=== PATIENT | female | born 1955 | race Caucasian/White ===

== ENCOUNTER 2017-06-23 20:56 | Emergency (ER) | payer BC ==
[2017-06-23 23:48] LABS: HEMATOCRIT 37.4 % (36.0-48.0); HEMOGLOBIN 12.7 g/dL (12-16); LYMPHOCYTES 20.6 % (15-50); MCH 29.3 pg (26.0-34.0); MCV 86.2 fL (80.0-100.0); MEAN PLATELET VOLUME 8.3 fL (7.4-10.4); NEUTROPHILS 72.7 % (40-80); RBC 4.34 10x6/uL (4.00-5.40); RDW 12.9 % (11.5-14.5); WBC 5.1 10x3/uL (4.8-10.8)
[2017-06-23 23:49] LABS: PLATELET COUNT 218 10x3/uL (130-400)
[2017-06-24 00:07] LABS: ALBUMIN 3.5 g/dL (3.4-5.0); ALKALINE PHOSPHATASE 71 U/L (46-116); ALT (SGPT) 27 U/L (10-68); CALC OSMOLALITY 274 mosm/kg (275-300); CALCIUM 8.7 mg/dL (8.5-10.1); CARBON DIOXIDE 24.4 mmol/L (21.0-32.0); CHLORIDE - SERUM 103 mmol/L (98-107); CREATININE - SERUM 0.6 mg/dL (0.6-1.3); GLUCOSE 103 mg/dL (74-106); POTASSIUM - SERUM 3.9 mmol/L (3.5-5.1); PROTEIN - SERUM 6.5 g/dL (6.4-8.2); SODIUM 137 mmol/L (136-145); UREA NITROGEN 16 mg/dL (7-18); eGFR NON AFRICAN AMERICAN > 90 mL/min (90-120)
[2017-06-24 00:19] LABS: CKMB 7.6 U/L (0.0-3.6); CREATINE KINASE 306 UL (21-215); TROPONIN-I < 0.017 ng/mL (0.000-0.060)
[2017-06-24 01:05] LABS: APPEARANCE CLOUDY (CLEAR); BILIRUBIN NEGATIVE (NEGATIVE); COLOR YELLOW (YELLOW); GLUCOSE NEGATIVE (NEGATIVE); KETONE MODERATE mg/dL (NEGATIVE); NITRITE POSITIVE (NEGATIVE); PROTEIN NEGATIVE (NEGATIVE); SPECIFIC GRAVITY 1.015 (1.005-1.020); UROBILINOGEN NORMAL (NORMAL)
[2017-06-24 01:06] LABS: BACTERIA MANY /hpf (NONE SEEN); EPITHELIAL CELLS 0-5 /hpf (0-5); RED CELLS - URINE 0-5 /hpf (0-5)
== END 2017-06-24 01:43 | disposition home or self-care (01) ==
LOC: D.ER 20:56
PROVIDERS: Family Medicine
DX: N39.0 Urinary tract infection, site not specified (principal); I95.9 Hypotension, unspecified; K58.9 Irritable bowel syndrome, unspecified; I44.0 Atrioventricular block, first degree

== ENCOUNTER → 2018-04-01 07:56 | Outpatient (CLI) | payer BC ==
[~2018-04-01 07:56] MED LIST: ACETAMINOPHEN500 M1 PO; CYMBALTA30 MG PO; LIMBITROL 5/12.1 TAB PO; LOMOTIL 2.5-0.1 EAC1 PO; NEURONTIN 300300 MG PO; SYNTHROID175 MCG PO; ULTRAM50 MG PO; ZOFRAN4 MG PO
[2018-04-01 08:27] LABS: BASOPHILS 0.3 % (0-2); EOSINOPHILS 4.7 % (0-7); HEMATOCRIT 40.6 % (36.0-48.0); HEMOGLOBIN 13.6 g/dL (12-16); IMMATURE GRANULOCYTES 0.2 % (0-5); LYMPHOCYTES 26.8 % (15-50); MCHC 33.5 g/dL (31.0-37.0); MCV 89.6 fL (80.0-100.0); MEAN PLATELET VOLUME 8.9 fL (7.4-10.4); MONOCYTES 7.6 % (2-11); NEUTROPHILS 60.4 % (40-80); PLATELET COUNT 261 10x3/uL (130-400); RBC 4.53 10x6/uL (4.00-5.40); WBC 6.3 10x3/uL (4.8-10.8)
[2018-04-01 09:02] LABS: ALBUMIN 3.8 g/dL (3.4-5.0); ANION GAP 13.4 mmol/L (8-16); BILIRUBIN - TOTAL 0.59 mg/dL (0.2-1.3); CALCIUM 9.2 mg/dL (8.5-10.1); CARBON DIOXIDE 27.2 mmol/L (21.0-32.0); CREATININE - SERUM 1.7 mg/dL (0.6-1.3); POTASSIUM - SERUM 3.6 mmol/L (3.5-5.1); PROTEIN - SERUM 7.3 g/dL (6.4-8.2); T4 THYROXIN - FREE 1.74 ng/dL (0.76-1.46); THYROID STIMULATING HORMONE 0.69 uIU/mL (0.36-3.74)
[2018-04-01 10:19] LABS: ERYTHROCYTE SEDIMENTATION RATE 10 mm/hr (0-30)
[2018-04-02 10:19] LABS: ANA REFLEX - DIRECT Negative (Negative); ANA REFLEX - SJOGRENS AB SSA <0.2 AI (0.0-0.9); ANA REFLEX - SJOGRENS AB SSB <0.2 AI (0.0-0.9); FOLATE (FOLIC ACID) - SERUM 11.2 ng/mL (>3.0)
[2018-04-03 15:26] LABS: SMOOTH MUSCLE ABS (ACTIN) 9 Units (0-19); SPE - A/G RATIO 1.1 (0.7-1.7); SPE - ALBUMIN 3.6 g/dL (2.9-4.4); SPE - ALPHA-1 GLOBULIN 0.3 g/dL (0.0-0.4); SPE - ALPHA-2 GLOBULIN 0.8 g/dL (0.4-1.0); SPE - M-SPIKE Not Observed g/dL (Not Observed); SPE - TOTAL PROTEIN 6.8 g/dL (6.0-8.5)
[2018-04-03 16:13] LABS: ANCA - ANTIMYELOPEROXIDASE <9.0 U/mL (0.0-9.0); ANCA - ANTIPROTEINASE 3 <3.5 U/mL (0.0-3.5); ANCA - ATYPICAL <1:20 titer (Neg:<1:20); ANCA - CYTOPLASMIC <1:20 titer (Neg:<1:20); ANCA - PERINUCLEAR <1:20 titer (Neg:<1:20)
[2018-04-08 14:23] LABS: SINGLE-STRANDED DNA ABS <20 EU (0-19)
[2018-04-10 15:24] LABS: ANTI-HU ANTIBODIES <1:10 titer (()); ANTI-YO ANTIBODIES <1:10 titer (()); GM1 IGM <1:100 titer (())
[2018-04-21 10:38] VITALS: BMI 30.8
== END | disposition home or self-care (01) ==
LOC: D.LAB 07:56
PROVIDERS: Psychiatry & Neurology Neurology
DX: G62.9 Polyneuropathy, unspecified (principal)

== ENCOUNTER 2018-04-15 16:09 | Inpatient (IN) | payer BC ==
[~2018-04-15] VITALS: Ht 165.1 cm; Wt 81.8 kg
--- NOTE | ~2018-04-15 | MORECARE ---
CASE MANAGEMENT DISCHARGE SUMMARY PATIENT: GEOVANNA ROBERTS UNIT: [id number] ADM DATE: 04/15/18 AGE: 62 : 59 SEX: F ROOM/BED: D.2232 AUTHOR: MAR,DOC PHYSICIAN: REFERRING PHYSICIAN: ROYAL LR MD DATE OF SERVICE: 04/17/18 Discharge Plan Patient Name: GEOVANNA ROBERTS Facility: [facility]:[place] : 1955 Planned Disposition: Inpatient Rehab Anticipated Discharge Date: Discharge Date: Expected LOS: Initial Reviewer: [email or web address] Initial Review Date: 04/17/2018 Generated: 04/17/18 6:19 pm Comments DCP- Discharge Planning Updated by [email or web address]: Sarah Mcdonald on 04/17/18 4:[address] Patient Name: GEOVANNA ROBERTS Admission Status: ER Accout number: [id number] Admission Date: 04-15-2018 : 1955 Admission Diagnosis:DISPLACED BIMALLEOLAR FRACTURE OF RIGHT LOWER LEG, INIT Attending: ROYAL LR Current LOS: 2 Anticipated DC Date: Planned Disposition: Inpatient Rehab Primary Insurance: [employer] [facility] Discharge Planning Comments: CM met with patient to discuss discharge planning, she is alone in the room. States she lives alone. States she is independent with all ADL's and IADL's. States she does not have any outside services assisting in the home. States she may have a BSC, will have to have her family check. Informed of availability of rehab, SNF, DME. States she would like to go to inpatient rehab before going home. States she will probably need a rollator walker prior to discharge home "something I can use my arm strength on to stand". CM will continue to follow and assist with discharge planning/needs. Operator Control Room: Sarah Mcdonald DCPIA - Discharge Planning Initial Assessment Updated by [email or web address]: Sarah Mcdonald on 04/17/18 5:11 pm * Is the patient Alert and Oriented? Yes * How many steps to enter\\exit or inside your home? Ramp/0 * PCP Dr. Lr * Pharmacy [facility] * Preadmission Environment Home Alone * ADLs Independent * Equipment Grab Bars Other * Other Equipment Grab stick * List name and contact numbers for known caregivers / representatives who currently or will assist patient after discharge: Samara montiel daughter - [phone] * Verbal permission to speak to the caregivers and representatives has been obtained from the patient. Yes * Community resources currently utilized None * Additional services required to return to the preadmission environment? Yes * Can the patient safely return to the preadmission environment? No * Has this patient been hospitalized within the prior 30 days at any hospital? No Patient Name: GEOVANNA ROBERTS Page [id number] at 1719 All edits/amendments must be made on the electronic document DICTATION DATE: 04/17/181718 BLASTING GANG MINER: JULI 04/17/181718 RPT#: [id number] DC DATE: STATUS: ADM IN [facility] [address] [place] [address] END OF REPORT
--- NOTE | ~2018-04-15 | MORECARE ---
CASE MANAGEMENT DISCHARGE SUMMARY PATIENT: GEOVANNA ROBERTS UNIT: [id number] ADM DATE: 04/15/18 AGE: 62 : 59 SEX: F ROOM/BED: D.2232 AUTHOR: MAR,DOC PHYSICIAN: REFERRING PHYSICIAN: ROYAL LR MD DATE OF SERVICE: 04/20/18 Discharge Plan Patient Name: GEOVANNA ROBERTS Facility: [facility]:[place] : 1955 Planned Disposition: Inpatient Rehab Anticipated Discharge Date: Discharge Date: Expected LOS: Initial Reviewer: [email or web address] Initial Review Date: 04/17/2018 Generated: 04/20/18 3:43 pm Comments DCP- Discharge Planning Updated by [email or web address]: Sarah Mcdonald on 04/20/18 1:[address] Received a call from Roxanne that she expects to receive authorization in a few minutes from insurance. I called Deb Cruz and she gives administration approval for rehab inpatient admission. I informed the patient and she agrees to plan. Anticipate discharge to inpatient rehab today. CM will continue to follow and assist with discharge planning/needs. DCP- Discharge Planning Updated by [email or web address]: Sarah Mcdonald on 04/17/18 5:[address] Patient Name: GEOVANNA ROBERTS Admission Status: ER Accout number: [id number] Admission Date: 04-15-2018 : 1955 Admission Diagnosis:DISPLACED BIMALLEOLAR FRACTURE OF RIGHT LOWER LEG, INIT Attending: ROYAL LR Current LOS: 2 Anticipated DC Date: Planned Disposition: Inpatient Rehab Primary Insurance: [employer] [facility] Discharge Planning Comments: CM met with patient to discuss discharge planning, she is alone in the room. States she lives alone. States she is independent with all ADL's and IADL's. States she does not have any outside services assisting in the home. States she may have a BSC, will have to have her family check. Informed of availability of rehab, SNF, DME. States she would like to go to inpatient rehab before going home. States she will probably need a rollator walker prior to discharge home "something I can use my arm strength on to stand". CM will continue to follow and assist with discharge planning/needs. [employer] Operator: Sarah Mcdonald DCPIA - Discharge Planning Initial Assessment Updated by [email or web address]: Sarah Mcdonald on 04/17/18 5:11 pm * Is the patient Alert and Oriented? Yes * How many steps to enter\\exit or inside your home? Ramp/0 * PCP Dr. Lr * [facility]acy [facility] * Preadmission Environment Home Alone * ADLs Independent * Equipment Grab Bars Other * Other Equipment Grab stick * List name and contact numbers for known caregivers / representatives who currently or will assist patient after discharge: Samara montiel daughter - [phone] * Verbal permission to speak to the caregivers and representatives has been obtained from the patient. Yes * Community resources currently utilized None * Additional services required to return to the preadmission environment? Yes * Can the patient safely return to the preadmission environment? No * Has this patient been hospitalized within the prior 30 days at any hospital? No Last DP export: 04/17/18 5:19 p Patient Name: GEOVANNA ROBERTS Page 00034 at 1443 All edits/amendments must be made on the electronic document DICTATION DATE: 04/20/181442 CENA: JULI 04/20/183 RPT#: [id number] [place] DATE: STATUS: ADM IN [facility] [address] [place] [address] END OF REPORT
--- NOTE | ~2018-04-15 | MORECARE ---
CASE MANAGEMENT DISCHARGE SUMMARY PATIENT: GEOVANNA ROBERTS UNIT: [id number] ADM DATE: 04/15/18 AGE: 62 : 59 SEX: F ROOM/BED: D.2232 AUTHOR: MAR,DOC PHYSICIAN: REFERRING PHYSICIAN: ROYAL LR MD DATE OF SERVICE: 04/21/18 Discharge Plan Patient Name: GEOVANNA ROBERTS Facility: [facility]:[place] : 1955 Planned Disposition: Inpatient Rehab Anticipated Discharge Date: Discharge Date: 04/20/2018 Expected LOS: 0 Initial Reviewer: [email or web address] Initial Review Date: 04/17/2018 Generated: 04/21/18 10:10 am Comments DCP- Discharge Planning Updated by [email or web address]: Sarah Mcdonald on 04/20/18 1:[address] Received a call from Roxanne that she expects to receive authorization in a few minutes from insurance. I called Deb Cruz and she gives administration approval for rehab inpatient admission. I informed the patient and she agrees to plan. Anticipate discharge to inpatient rehab today. CM will continue to follow and assist with discharge planning/needs. DCP- Discharge Planning Updated by [email or web address]: Sarah Mcdonald on 04/17/18 5:[address] Patient Name: GEOVANNA ROBERTS Admission Status: ER Accout number: [id number] Admission Date: 04-15-2018 : 1955 Admission Diagnosis:DISPLACED BIMALLEOLAR FRACTURE OF RIGHT LOWER LEG, INIT Attending: ROYAL LR Current LOS: 2 Anticipated DC Date: Planned Disposition: Inpatient Rehab Primary Insurance: [employer] [facility] Discharge Planning Comments: CM met with patient to discuss discharge planning, she is alone in the room. States she lives alone. States she is independent with all ADL's and IADL's. States she does not have any outside services assisting in the home. States she may have a BSC, will have to have her family check. Informed of availability of rehab, SNF, DME. States she would like to go to inpatient rehab before going home. States she will probably need a rollator walker prior to discharge home "something I can use my arm strength on to stand". CM will continue to follow and assist with discharge planning/needs. Project Development Director: Sarah Mcdonald DCPIA - Discharge Planning Initial Assessment Updated by [email or web address]: Sarah Mcdonald on 04/17/18 5:11 pm * Is the patient Alert and Oriented? Yes * How many steps to enter\\exit or inside your home? Ramp/0 * PCP Dr. Lr * Pharmacy [facility] * Preadmission Environment Home Alone * ADLs Independent * Equipment Grab Bars Other * Other Equipment Grab stick * List name and contact numbers for known caregivers / representatives who currently or will assist patient after discharge: Samara montiel daughter - [phone] * Verbal permission to speak to the caregivers and representatives has been obtained from the patient. Yes * Community resources currently utilized None * Additional services required to return to the preadmission environment? Yes * Can the patient safely return to the preadmission environment? No * Has this patient been hospitalized within the prior 30 days at any hospital? No Last DP export: 04/20/18 1:43 p Patient Name: GEOVANNA ROBERTS Page 85605 at 0910 All edits/amendments must be made on the electronic document DICTATION DATE: 04/21/18908 FACULTY NEUROPSYCHOLOGIST: JULI 04/21/18908 RPT#: [id number] DC DATE:04/20/18 STATUS: DIS IN [facility] [address] [place] [address] END OF REPORT
[2018-04-15] MEDS ORDERED: SYNTHROID175 MCG PO (16:16)
[2018-04-15] MEDS ORDERED: CYMBALTA30 MG PO (16:16)
[2018-04-15] MEDS ORDERED: NEURONTIN 300300 MG PO (16:16)
[2018-04-15] MEDS ORDERED: LOMOTIL 2.5-0.1 EAC1 PO ×2 (16:17→23:43)
[2018-04-15] MEDS ORDERED: ACETAMINOPHEN500 M1 PO (16:17)
[2018-04-15] MEDS ORDERED: ZOFRAN4 MG PO (16:18)
[2018-04-15 17:47] LABS: BASOPHILS 0.5 % (0-2); EOSINOPHILS 7.1 % (0-7); HEMATOCRIT 37.1 % (36.0-48.0); HEMOGLOBIN 12.5 g/dL (12-16); LYMPHOCYTES 22.4 % (15-50); MCH 29.4 pg (26.0-34.0); MCHC 33.7 g/dL (31.0-37.0); MCV 87.3 fL (80.0-100.0); MEAN PLATELET VOLUME 8.8 fL (7.4-10.4); MONOCYTES 6.1 % (2-11); NEUTROPHILS 63.9 % (40-80); PLATELET COUNT 220 10x3/uL (130-400); RBC 4.25 10x6/uL (4.00-5.40); RDW 12.7 % (11.5-14.5); WBC 6.1 10x3/uL (4.8-10.8)
[2018-04-15 18:02] LABS: ALBUMIN 3.3 g/dL (3.4-5.0); ALKALINE PHOSPHATASE 123 U/L (46-116); ALT (SGPT) 116 U/L (10-68); BILIRUBIN - TOTAL 0.69 mg/dL (0.2-1.3); CALC OSMOLALITY 282 mosm/kg (275-300); CALCIUM 9.2 mg/dL (8.5-10.1); CARBON DIOXIDE 31.6 mmol/L (21.0-32.0); CHLORIDE - SERUM 105 mmol/L (98-107); CREATININE - SERUM 0.8 mg/dL (0.6-1.3); GLUCOSE 108 mg/dL (74-106); POTASSIUM - SERUM 3.8 mmol/L (3.5-5.1); PROTEIN - SERUM 6.5 g/dL (6.4-8.2); SODIUM 141 mmol/L (136-145); UREA NITROGEN 14 mg/dL (7-18); eGFR NON AFRICAN AMERICAN 77 mL/min (90-120)
[2018-04-15 18:30] VITALS: BP 126/72
[2018-04-15 19:16] LABS: APPEARANCE CLOUDY (CLEAR); BILIRUBIN NEGATIVE (NEGATIVE); COLOR YELLOW (YELLOW); GLUCOSE NEGATIVE (NEGATIVE); KETONE NEGATIVE (NEGATIVE); NITRITE POSITIVE (NEGATIVE); PROTEIN NEGATIVE (NEGATIVE); SPECIFIC GRAVITY 1.015 (1.005-1.020); UROBILINOGEN NORMAL (NORMAL)
[2018-04-15 19:20] LABS: BACTERIA MANY /hpf (NONE SEEN); RED CELLS - URINE OCC /hpf (0-5); WHITE CELLS - URINE >50 /hpf (0-5)
[2018-04-15 19:59] VITALS: BP 156/79
[2018-04-15 20:32] VITALS: BP 130/80
[2018-04-15] MEDS ORDERED: LIMBITROL 5/12.1 TAB PO (23:40)
[2018-04-16] VITALS (12 sets, daily range): BP systolic 101–127; BP diastolic 56–73; Ht 165.1 cm; Wt 81.8 kg
[2018-04-16 11:09] LABS: BASOPHILS 0.2 % (0-2); EOSINOPHILS 1.4 % (0-7); HEMATOCRIT 32.9 % (36.0-48.0); IMMATURE GRANULOCYTES 0.2 % (0-5); LYMPHOCYTES 6.6 % (15-50); MCH 29.3 pg (26.0-34.0); MCHC 33.4 g/dL (31.0-37.0); MCV 87.5 fL (80.0-100.0); MEAN PLATELET VOLUME 8.8 fL (7.4-10.4); MONOCYTES 3.5 % (2-11); NEUTROPHILS 88.1 % (40-80); PLATELET COUNT 191 10x3/uL (130-400); RBC 3.76 10x6/uL (4.00-5.40); RDW 12.7 % (11.5-14.5); WBC 6.4 10x3/uL (4.8-10.8)
[2018-04-16 11:10] LABS: ANION GAP 9.6 mmol/L (8-16); CALCIUM 8.5 mg/dL (8.5-10.1); CARBON DIOXIDE 29.3 mmol/L (21.0-32.0); CREATININE - SERUM 0.9 mg/dL (0.6-1.3); POTASSIUM - SERUM 3.9 mmol/L (3.5-5.1)
[2018-04-17 05:12] VITALS: BP 104/66
[2018-04-17 06:19] LABS: BASOPHILS 0.1 % (0-2); EOSINOPHILS 0.3 % (0-7); HEMATOCRIT 31.1 % (36.0-48.0); HEMOGLOBIN 10.5 g/dL (12-16); IMMATURE GRANULOCYTES 0.3 % (0-5); LYMPHOCYTES 13.6 % (15-50); MCH 29.6 pg (26.0-34.0); MCHC 33.8 g/dL (31.0-37.0); MCV 87.6 fL (80.0-100.0); MEAN PLATELET VOLUME 9.2 fL (7.4-10.4); NEUTROPHILS 74.7 % (40-80); PLATELET COUNT 218 10x3/uL (130-400); RBC 3.55 10x6/uL (4.00-5.40); RDW 12.7 % (11.5-14.5); WBC 9.3 10x3/uL (4.8-10.8)
[2018-04-17 06:35] LABS: ALBUMIN 2.6 g/dL (3.4-5.0); ANION GAP 11.1 mmol/L (8-16); BILIRUBIN - TOTAL 0.39 mg/dL (0.2-1.3); CALCIUM 8.4 mg/dL (8.5-10.1); CARBON DIOXIDE 27.4 mmol/L (21.0-32.0); CREATININE - SERUM 0.9 mg/dL (0.6-1.3); POTASSIUM - SERUM 3.5 mmol/L (3.5-5.1); PROTEIN - SERUM 5.8 g/dL (6.4-8.2)
[2018-04-17 08:29] VITALS: BP 120/80
[2018-04-17 21:26] VITALS: BP 100/61
[2018-04-18 09:35] VITALS: BP 121/72
[2018-04-18 16:30] VITALS: BP 117/70
[2018-04-18 20:39] VITALS: BP 101/68
[2018-04-19 00:20] VITALS: BP 104/63
[2018-04-19 05:02] VITALS: BP 112/68
[2018-04-19 09:04] VITALS: BP 116/66
[2018-04-19 11:52] VITALS: BP 116/64
[2018-04-19 15:32] VITALS: BP 111/65
[2018-04-19 20:50] VITALS: BP 114/64
[2018-04-20 01:20] VITALS: BP 124/64
[2018-04-20 08:37] VITALS: BP 110/71
[2018-04-20 13:07] VITALS: BP 120/68
[2018-04-20] MEDS ORDERED: ULTRAM50 MG PO ×2 (14:24→14:35)
[2018-04-20 16:55] VITALS: BP 135/68
== END 2018-04-20 18:36 | DRG 494 ==
LOC: D.ER 16:09 → D.EDHOLD 17:52 → D.MS 17:52
PROVIDERS: Family Medicine; Orthopaedic Surgery
PROC: 0QSG04Z Reposition Right Tibia with Internal Fixation Device, Open Approach (ICD-10-PCS; 2018-04-16)
PROC: 0QSJ04Z Reposition Right Fibula with Internal Fixation Device, Open Approach (ICD-10-PCS; principal; 2018-04-16 07:30)
DX: S82.841A Displaced bimalleolar fracture of right lower leg, initial encounter for closed fracture (principal); W01.0XXA Fall on same level from slipping, tripping and stumbling without subsequent striking against object, initial encounter; G62.9 Polyneuropathy, unspecified; R32 Unspecified urinary incontinence; K58.9 Irritable bowel syndrome, unspecified; E03.9 Hypothyroidism, unspecified; M21.372 Foot drop, left foot; M21.371 Foot drop, right foot

== ENCOUNTER 2018-04-20 18:14 | Inpatient (IN) | payer BC ==
[~2018-04-20] VITALS: Ht 165.1 cm; Wt 84.0 kg
--- NOTE | ~2018-04-20 | RHP ---
PATIENT: GEOVANNA ROBERTS MEDICAL RECORD: [id number] ACCOUNT: [id number] LOCATION:[facility] : [birth year] ADMISSION DATE: 04/20/18 REHABILITATION HISTORY AND PHYSICAL EXAMINATION POST ADMISSION PHYSICIAN EXAMINATION DATE OF ADMISSION: 04/20/2018 ADMITTING DIAGNOSIS: Comminuted displaced fracture of the medial malleolus, distal with some medial displacement fracture fragments. HISTORY OF PRESENT ILLNESS: The patient is a 62-year-old female patient admitted to rehab with a comminuted distal fracture of the medial and lateral malleolus with intra-articular involvement after a fall at home, and history of neuropathy, apparently, she also has bilateral foot drop. She has got a history of coronary artery disease, hypothyroidism, irritable bowel syndrome, and chronic UTIs. Apparently, she was twisting her ankle just prior to arrival to the Emergency Room, but then was unable to walk or bear weight on her right leg. On arrival to the Emergency Room, she had marked swelling to the proximal part of her ankle, associated ecchymosis was noted, with some tenderness along her anterior proximal aspect of her ankle. X-ray showed a comminuted displaced fracture of the medial malleolus, distal tibia with some medial displacement of the distal fracture fragment. The patient was reduced and splinted in the Emergency Room under TIVA and was admitted with ortho consultation. On 04/16/2018, she went to the OR for a right bimalleolar ankle fracture. Previously, she was independent without aid for ADLs and mobility. 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 She has been nonweightbearing on her right leg. She has some postop fever with a temperature of 100.2 and also some tachycardia. A venous Doppler of her leg has been negative thus far for DVT. She wants to be able to pivot transfer on the left leg and be able to transfer to and from bed while being nonweightbearing and will need inpatient rehab to get this done. COMORBIDITIES: Include bilateral foot drop, neuropathy, postop fever, anemia, status post ORIF of the right bimalleolar ankle fracture, hypothyroidism, malaise, fatigue, numbness, vertigo, pedal edema, arthritis, glaucoma, cataracts, and hyperglycemia. PAST MEDICAL HISTORY: Significant for neuropathy, vertigo, cataracts, hypothyroidism, coronary artery disease, and edema. PAST SURGICAL HISTORY: Includes stent placed and an ORIF of her right ankle. ALLERGIES: CODEINE, HYDROCODONE, AND CHLORZOXAZONE. CURRENT MEDICATIONS: Include Neurontin, she takes t.i.d.; Cymbalta 30 mg daily; Lomotil 2 tabs daily; Synthroid 175 mcg daily; tramadol 100 mg q.6 hours p.r.n.; Zofran ODT 4 mg q.6 hours p.r.n.; and Tylenol 1000 mg q.6 hours p.r.n. HABITS: No alcohol or tobacco use. FAMILY HISTORY: Noncontributory. SOCIAL HISTORY: The patient hopes to return back home and get back to her prior level of functioning. HISTORY AND PHYSICAL [id number] GEOVANNA ROBERTS REVIEW OF SYSTEMS: GENERAL: Denies weakness or fatigue. HEENT: Denies cold, cough, or congestion. CARDIOVASCULAR: Denies chest pain. PHYSICAL EXAMINATION: VITAL SIGNS: Stable, afebrile. GENERAL: A well-developed female, in no acute distress, alert upon exam. HEENT: Normocephalic and atraumatic. Mucosa moist. NECK: Supple. No lymphadenopathy. LUNGS: Clear at this time. HEART: Regular rate and rhythm. ABDOMEN: Benign. EXTREMITIES: No clubbing, cyanosis, or edema. She does have surgical dressings and a brace in place. NEUROLOGIC: She is intact. LABORATORY DATA: Her white count is 5.3, H&H of 11 and 33, and platelet count was noted to be 256. Her sodium is 140, potassium 4.0, BUN and creatinine of 12 and 0.7, blood sugar is noted to be 96. ASSESSMENT: This 62-year-old female patient admitted to the rehab with a working diagnosis of status post ORIF of her right bimalleolar ankle fracture. The patient has potential to make improvement. We instituted the following multidisciplinary therapies including, but not limited to physical, occupational, respiratory, speech, nutritional services, prosthetics and orthotics. Given her complex medical condition and risk for more complications, rehabilitation services cannot be provided at a low level of care such as skilled nurse facility. PLAN: 1. Admit to [facility] for intensive inpatient therapy to include the following disciplines: A. Physical therapy to improve gait, all transfer skills and bed mobility to a modified independent level. B. Occupational therapy to improve activities of daily living to a modified independent level. C. Case management to assist with discharge planning and placement options. D. Nutrition to assist with nutritional needs. E. Rehabilitation nursing to assist in monitoring the patient's underlying medical conditions and to assist with any type of bowel or bladder management. 2. The patient's current medication and medical care will be continued. 3. The patient will be placed on standard fall precautions. 4. We will continue home medications as previously prescribed. 5. We will follow up in the a.m. with her and also with care team and field nurse case manager tomorrow. TRANSINT:[id number] Voice Confirmation ID: [id number] DOCUMENT ID: [id number] ROB notes whether there has been none or any medical/functional change since admission: - No change since preadmission screen. HISTORY AND PHYSICAL [id number] GEOVANNA ROBERTS attests patient continues to be appropriate for IRF: - Continues to be appropriate. SASHA ALFARO MD at 1404 CC: [id number] DICTATION DATE: 04/21/18 0851 FINANCIAL INVESTMENT ADVISER: 04/21/18 1010 ADM IN [facility] [address] [place] [address]
[2018-04-20 21:19] VITALS: BP 127/60
[2018-04-21 07:56] LABS: BASOPHILS 0.6 % (0-2); EOSINOPHILS 9.7 % (0-7); HEMATOCRIT 32.5 % (36.0-48.0); HEMOGLOBIN 10.9 g/dL (12-16); IMMATURE GRANULOCYTES 1.1 % (0-5); MCH 29.4 pg (26.0-34.0); MCHC 33.5 g/dL (31.0-37.0); MCV 87.6 fL (80.0-100.0); MEAN PLATELET VOLUME 9.6 fL (7.4-10.4); MONOCYTES 7.2 % (2-11); NEUTROPHILS 50.4 % (40-80); PLATELET COUNT 256 10x3/uL (130-400); RBC 3.71 10x6/uL (4.00-5.40); RDW 12.7 % (11.5-14.5); WBC 5.3 10x3/uL (4.8-10.8)
[2018-04-21 07:57] LABS: CALC OSMOLALITY 278 mosm/kg (275-300); CALCIUM 8.7 mg/dL (8.5-10.1); CARBON DIOXIDE 27.5 mmol/L (21.0-32.0); CHLORIDE - SERUM 106 mmol/L (98-107); CREATININE - SERUM 0.7 mg/dL (0.6-1.3); GLUCOSE 96 mg/dL (74-106); SODIUM 140 mmol/L (136-145); UREA NITROGEN 12 mg/dL (7-18); eGFR NON AFRICAN AMERICAN 90 mL/min (90-120)
[2018-04-21 08:26] VITALS: BP 130/64
[2018-04-21 10:38] VITALS: Ht 165.1 cm; Wt 84.0 kg
[2018-04-21 19:00] VITALS: BP 114/68
[2018-04-22 08:00] VITALS: BP 108/60
[2018-04-22 12:11] LABS: BASOPHILS 0.4 % (0-2); EOSINOPHILS 8.2 % (0-7); HEMOGLOBIN 10.2 g/dL (12-16); IMMATURE GRANULOCYTES 0.2 % (0-5); LYMPHOCYTES 31.4 % (15-50); MCH 29.6 pg (26.0-34.0); MCHC 32.9 g/dL (31.0-37.0); MEAN PLATELET VOLUME 8.7 fL (7.4-10.4); NEUTROPHILS 51.8 % (40-80); PLATELET COUNT 261 10x3/uL (130-400); RBC 3.45 10x6/uL (4.00-5.40); RDW 12.7 % (11.5-14.5); WBC 5.5 10x3/uL (4.8-10.8)
[2018-04-22 12:12] LABS: MCV 89.9 fL (80.0-100.0)
[2018-04-22 12:28] LABS: CALCIUM 8.6 mg/dL (8.5-10.1); CARBON DIOXIDE 27.5 mmol/L (21.0-32.0); CHLORIDE - SERUM 106 mmol/L (98-107); CREATININE - SERUM 0.7 mg/dL (0.6-1.3); GLUCOSE 94 mg/dL (74-106); SODIUM 140 mmol/L (136-145); eGFR NON AFRICAN AMERICAN 90 mL/min (90-120)
[2018-04-22 12:32] LABS: CALC OSMOLALITY 279 mosm/kg (275-300); POTASSIUM - SERUM 4.8 mmol/L (3.5-5.1); UREA NITROGEN 16 mg/dL (7-18)
[2018-04-22 19:00] VITALS: BP 90/60
[2018-04-23 08:00] VITALS: BP 98/54
[2018-04-23 20:40] VITALS: BP 115/65
[2018-04-24 05:48] LABS: BASOPHILS 0.2 % (0-2); EOSINOPHILS 10.8 % (0-7); HEMATOCRIT 29.8 % (36.0-48.0); HEMOGLOBIN 9.7 g/dL (12-16); IMMATURE GRANULOCYTES 0.4 % (0-5); LYMPHOCYTES 30.3 % (15-50); MCHC 32.6 g/dL (31.0-37.0); MCV 89.2 fL (80.0-100.0); MEAN PLATELET VOLUME 8.7 fL (7.4-10.4); MONOCYTES 6.9 % (2-11); NEUTROPHILS 51.4 % (40-80); PLATELET COUNT 267 10x3/uL (130-400); RBC 3.34 10x6/uL (4.00-5.40); RDW 12.7 % (11.5-14.5); WBC 5.2 10x3/uL (4.8-10.8)
[2018-04-24 06:14] LABS: CALC OSMOLALITY 279 mosm/kg (275-300); CALCIUM 8.5 mg/dL (8.5-10.1); CARBON DIOXIDE 29.1 mmol/L (21.0-32.0); CHLORIDE - SERUM 105 mmol/L (98-107); CREATININE - SERUM 0.8 mg/dL (0.6-1.3); GLUCOSE 103 mg/dL (74-106); POTASSIUM - SERUM 4.3 mmol/L (3.5-5.1); SODIUM 140 mmol/L (136-145); UREA NITROGEN 14 mg/dL (7-18); eGFR NON AFRICAN AMERICAN 77 mL/min (90-120)
[2018-04-24 08:02] VITALS: BP 119/55
[2018-04-24 19:02] VITALS: BP 131/72
[2018-04-25 07:58] VITALS: BP 98/58
[2018-04-25 20:50] VITALS: BP 96/59
[2018-04-26 08:57] VITALS: BP 98/53
[2018-04-26 20:00] VITALS: BP 113/60
[2018-04-27 06:33] LABS: BASOPHILS 0.2 % (0-2); EOSINOPHILS 8.3 % (0-7); HEMATOCRIT 28.5 % (36.0-48.0); HEMOGLOBIN 9.3 g/dL (12-16); IMMATURE GRANULOCYTES 0.2 % (0-5); LYMPHOCYTES 30.9 % (15-50); MCH 29.2 pg (26.0-34.0); MCHC 32.6 g/dL (31.0-37.0); MCV 89.3 fL (80.0-100.0); MEAN PLATELET VOLUME 8.7 fL (7.4-10.4); MONOCYTES 7.6 % (2-11); NEUTROPHILS 52.8 % (40-80); PLATELET COUNT 290 10x3/uL (130-400); RBC 3.19 10x6/uL (4.00-5.40); RDW 12.8 % (11.5-14.5); WBC 5.7 10x3/uL (4.8-10.8)
[2018-04-27 06:49] LABS: CALC OSMOLALITY 281 mosm/kg (275-300); CALCIUM 8.3 mg/dL (8.5-10.1); CARBON DIOXIDE 27.7 mmol/L (21.0-32.0); CHLORIDE - SERUM 106 mmol/L (98-107); CREATININE - SERUM 0.7 mg/dL (0.6-1.3); GLUCOSE 96 mg/dL (74-106); POTASSIUM - SERUM 3.9 mmol/L (3.5-5.1); SODIUM 141 mmol/L (136-145); UREA NITROGEN 15 mg/dL (7-18); eGFR NON AFRICAN AMERICAN 90 mL/min (90-120)
[2018-04-27 08:00] VITALS: BP 111/65
[2018-04-27 21:57] VITALS: BP 126/68
[2018-04-28 08:14] VITALS: BP 115/64
[2018-04-28 19:00] VITALS: BP 116/67
[2018-04-29 06:17] LABS: BASOPHILS 0.4 % (0-2); EOSINOPHILS 7.3 % (0-7); HEMATOCRIT 28.3 % (36.0-48.0); HEMOGLOBIN 9.4 g/dL (12-16); IMMATURE GRANULOCYTES 0.2 % (0-5); LYMPHOCYTES 29.8 % (15-50); MCH 29.7 pg (26.0-34.0); MCHC 33.2 g/dL (31.0-37.0); MCV 89.6 fL (80.0-100.0); MEAN PLATELET VOLUME 8.7 fL (7.4-10.4); MONOCYTES 9.8 % (2-11); NEUTROPHILS 52.5 % (40-80); PLATELET COUNT 318 10x3/uL (130-400); RBC 3.16 10x6/uL (4.00-5.40); RDW 12.8 % (11.5-14.5); WBC 5.6 10x3/uL (4.8-10.8)
[2018-04-29 06:35] LABS: CALC OSMOLALITY 278 mosm/kg (275-300); CALCIUM 8.8 mg/dL (8.5-10.1); CARBON DIOXIDE 29.8 mmol/L (21.0-32.0); CHLORIDE - SERUM 105 mmol/L (98-107); CREATININE - SERUM 0.7 mg/dL (0.6-1.3); GLUCOSE 104 mg/dL (74-106); POTASSIUM - SERUM 4.1 mmol/L (3.5-5.1); SODIUM 139 mmol/L (136-145); UREA NITROGEN 15 mg/dL (7-18); eGFR NON AFRICAN AMERICAN 90 mL/min (90-120)
[2018-04-29 08:15] VITALS: BP 108/60
[2018-04-29 19:00] VITALS: BP 108/58
[2018-04-30 08:06] VITALS: BP 113/63
[2018-04-30 19:09] VITALS: BP 119/71
[2018-05-01 07:28] LABS: BASOPHILS 0.5 % (0-2); EOSINOPHILS 10.4 % (0-7); HEMATOCRIT 29.8 % (36.0-48.0); HEMOGLOBIN 9.8 g/dL (12-16); IMMATURE GRANULOCYTES 0.2 % (0-5); LYMPHOCYTES 23.3 % (15-50); MCH 29.5 pg (26.0-34.0); MCHC 32.9 g/dL (31.0-37.0); MCV 89.8 fL (80.0-100.0); MEAN PLATELET VOLUME 8.4 fL (7.4-10.4); NEUTROPHILS 55.6 % (40-80); PLATELET COUNT 317 10x3/uL (130-400); RBC 3.32 10x6/uL (4.00-5.40); RDW 12.8 % (11.5-14.5); WBC 5.5 10x3/uL (4.8-10.8)
[2018-05-01 07:36] LABS: CALC OSMOLALITY 276 mosm/kg (275-300); CALCIUM 8.6 mg/dL (8.5-10.1); CARBON DIOXIDE 30.8 mmol/L (21.0-32.0); CHLORIDE - SERUM 104 mmol/L (98-107); CREATININE - SERUM 0.6 mg/dL (0.6-1.3); GLUCOSE 101 mg/dL (74-106); POTASSIUM - SERUM 4.7 mmol/L (3.5-5.1); SODIUM 138 mmol/L (136-145); UREA NITROGEN 14 mg/dL (7-18); eGFR NON AFRICAN AMERICAN > 90 mL/min (90-120)
[2018-05-01 08:19] VITALS: BP 107/48
== END 2018-05-01 14:50 | disposition home or self-care (01) | DRG 560 ==
LOC: D.REHAB 18:14
PROVIDERS: Emergency Medicine
DX: S82.51XD Displaced fracture of medial malleolus of right tibia, subsequent encounter for closed fracture with routine healing (principal); N39.0 Urinary tract infection, site not specified; W19.XXXD Unspecified fall, subsequent encounter; M21.372 Foot drop, left foot; M21.371 Foot drop, right foot; G62.9 Polyneuropathy, unspecified; D64.9 Anemia, unspecified; E03.9 Hypothyroidism, unspecified; R53.81 Other malaise; R20.0 Anesthesia of skin; H40.9 Unspecified glaucoma; R73.9 Hyperglycemia, unspecified; H26.9 Unspecified cataract; R42 Dizziness and giddiness; Z47.89 Encounter for other orthopedic aftercare; R53.1 Weakness; K58.9 Irritable bowel syndrome, unspecified

== ENCOUNTER → 2018-05-15 11:58 | Outpatient (CLI) | payer BC ==
[2018-04-21 10:38] VITALS: BMI 30.8
[2018-05-15 12:20] LABS: BASOPHILS 0.4 % (0-2); HEMOGLOBIN 10.9 g/dL (12-16); LYMPHOCYTES 32.4 % (15-50); MCH 28.8 pg (26.0-34.0); MCV 87.1 fL (80.0-100.0); MEAN PLATELET VOLUME 8.5 fL (7.4-10.4); MONOCYTES 7.4 % (2-11); NEUTROPHILS 51.8 % (40-80); RBC 3.79 10x6/uL (4.00-5.40); RDW 12.9 % (11.5-14.5); WBC 5.3 10x3/uL (4.8-10.8)
[2018-05-15 12:40] LABS: PLATELET COUNT 249 10x3/uL (130-400)
== END | disposition home or self-care (01) ==
LOC: D.LAB 11:58
PROVIDERS: Family Medicine
DX: D64.9 Anemia, unspecified (principal); S82.891A Other fracture of right lower leg, initial encounter for closed fracture; X58.XXXA Exposure to other specified factors, initial encounter; E55.9 Vitamin D deficiency, unspecified; E53.8 Deficiency of other specified B group vitamins; R60.0 Localized edema

== ENCOUNTER 2018-08-03 10:16 | Emergency (ER) | payer BC ==
[~2018-08-03] VITALS: Ht 165.1 cm; Wt 81.6 kg
[2018-08-03 10:22] VITALS: Ht 165.1 cm; Wt 81.6 kg
[2018-08-03 13:45] LABS: APPEARANCE SL CLDY (CLEAR); COLOR YELLOW (YELLOW); GLUCOSE NEGATIVE (NEGATIVE); NITRITE POSITIVE (NEGATIVE); PROTEIN 1+ mg/dL (NEGATIVE); SPECIFIC GRAVITY 1.015 (1.005-1.020)
[2018-08-03 13:46] LABS: BACTERIA MANY /hpf (NONE SEEN); BILIRUBIN NEGATIVE (NEGATIVE); KETONE MODERATE mg/dL (NEGATIVE); MUCUS <1+ /lpf (NONE SEEN); RED CELLS - URINE 0-5 /hpf (0-5); UROBILINOGEN NORMAL (NORMAL)
[2018-08-03 14:08] LABS: ALBUMIN 2.8 g/dL (3.4-5.0); ALKALINE PHOSPHATASE 89 U/L (46-116); ALT (SGPT) 18 U/L (10-68); BILIRUBIN - TOTAL 0.63 mg/dL (0.2-1.3); CALC OSMOLALITY 272 mosm/kg (275-300); CALCIUM 8.9 mg/dL (8.5-10.1); CARBON DIOXIDE 27.5 mmol/L (21.0-32.0); CHLORIDE - SERUM 98 mmol/L (98-107); CREATININE - SERUM 0.8 mg/dL (0.6-1.3); GLUCOSE 105 mg/dL (74-106); POTASSIUM - SERUM 3.4 mmol/L (3.5-5.1); PROTEIN - SERUM 6.9 g/dL (6.4-8.2); SODIUM 136 mmol/L (136-145); UREA NITROGEN 14 mg/dL (7-18); eGFR NON AFRICAN AMERICAN 77 mL/min (90-120)
[2018-08-03 14:09] LABS: BASOPHILS 0.1 % (0-2); EOSINOPHILS 0 % (0-7); HEMOGLOBIN 11.9 g/dL (12-16); MCH 28.3 pg (26.0-34.0); MCV 83.1 fL (80.0-100.0); MEAN PLATELET VOLUME 9.6 fL (7.4-10.4); MONOCYTES 8.8 % (2-11); NEUTROPHILS 83.1 % (40-80); PLATELET COUNT 261 10x3/uL (130-400); RBC 4.21 10x6/uL (4.00-5.40); WBC 8.1 10x3/uL (4.8-10.8)
[2018-08-03 14:16] LABS: AMYLASE - SERUM 24 U/L (25-115); LIPASE 49 U/L (73-393); MAGNESIUM - SERUM 1.6 mg/dL (1.8-2.4); TROPONIN-I < 0.017 ng/mL (0.000-0.060)
[2018-08-03] MEDS ORDERED: ZOFRAN ODT4 MG/UDTAB PO (14:29)
[2018-08-03] MEDS ORDERED: MACROBID100 MG PO (14:30)
[2018-08-03 17:33] VITALS: BP 149/76
== END 2018-08-03 17:10 | disposition home or self-care (01) ==
LOC: D.ER 10:16
PROVIDERS: Emergency Medicine
DX: R10.9 Unspecified abdominal pain (principal); E87.6 Hypokalemia; E83.42 Hypomagnesemia; R11.10 Vomiting, unspecified

== ENCOUNTER → 2018-08-17 10:38 | Outpatient (CLI) | payer BC ==
[2018-08-03 10:22] VITALS: BMI 30.8
[~2018-08-17 10:38] MED LIST changes: +MACROBID100 MG PO; +ZOFRAN ODT4 MG/UDTAB PO
== END | disposition home or self-care (01) ==
LOC: D.RAD 10:38
PROVIDERS: ATTEND Internal Medicine Gastroenterology
DX: R19.7 Diarrhea, unspecified (principal)

== ENCOUNTER → 2018-08-28 08:24 | Outpatient (CLI) | payer BC ==
[2018-08-03 10:22] VITALS: BMI 30.8
[2018-08-28 09:46] LABS: ALBUMIN 2.9 g/dL (3.4-5.0); BILIRUBIN - DIRECT 0.09 mg/dL (0.00-0.30); BILIRUBIN - INDIRECT 0.28 mg/dL (0.00-1.00); BILIRUBIN - TOTAL 0.37 mg/dL (0.2-1.3); PROTEIN - SERUM 6.4 g/dL (6.4-8.2)
== END | disposition home or self-care (01) ==
LOC: D.US 08:24
PROVIDERS: ATTEND Internal Medicine Gastroenterology
DX: K76.0 Fatty (change of) liver, not elsewhere classified (principal)

== ENCOUNTER → 2018-11-16 12:25 | Outpatient (CLI) | payer BC ==
[2018-08-03 10:22] VITALS: BMI 30.8
== END | disposition home or self-care (01) ==
LOC: D.RAD 12:25
PROVIDERS: ATTEND Family Medicine
DX: R13.10 Dysphagia, unspecified (principal)